=== PATIENT | male | born 1980 | race Two or more races ===

== ENCOUNTER 2024-09-02 20:27 | Emergency (ER) | payer BC, OTHER ==
[~2024-09-02] VITALS: Ht 167.6 cm; Wt 72.7 kg
[2024-09-02] MEDS: ONDANSETRON HCL 4 MG/2 ML VIAL IV ONE (21:30)
[2024-09-02] MEDS: THIAMINE 100mg/ml INJ (200mg/2ml VIAL) IV ONE (21:30)
[2024-09-02] MEDS: SODIUM CHLORIDE 0.9% 2,000 ML IV ONE (21:30)
--- NOTE | 2024-09-02 22:13 | ED.PDOC ---
History of Present Illness HPI Comments Patient is a 43-year-old male who arrives the ED today via EMS due to intoxication. Patient apparently was leaning on a taco truck intoxicated when the taco truck esthetician/owner called EMS. Patient arrives intoxicated. Patient states he is not interested in receiving any services. Chief Complaint: ETOH Time Seen by MD: 20:49 Reviewed Notes: Nurses Notes, Cut Roll Machine Offbearer Notes Allergies: Coded Allergies: NO KNOWN ALLERGIES (Unverified , 09/02/24) Information Source: Patient, Emergency Med Personnel Mode of Arrival: Ambulatory Severity: Moderate Timing: Hours Duration: Since onset Prehospital treatment: None Past Medical History PAST MEDICAL HISTORY: Denies Surgical History: Denies all surgeries Family History Family History: Reviewed,noncontributory to illness, No family hx of Cancer, No family hx of DM, No family hx of Heart solo, No family hx of HTN, No family hx ofKidney solo, No family hx of Liver solo, No family hx of Lung solo, No family hx of Stroke Social History Smoker: Non-Smoker Alcohol: Heavy Drugs: Denies Drug Use Lives In: Home Constitutional: denies: chills, diaphoresis, fatigue, fever, malaise, sweats, weakness, others EENTM: denies: blurred vision, double vision, ear bleeding, ear discharge, ear drainage, ear pain, ear ringing, eye pain, eye redness, hearing loss, mouth pain, mouth swelling, nasal discharge, nose bleeding, nose congestion, nose pain, photophobia, tearing, throat pain, throat swelling, voice changes, others Respiratory: denies: cough, hemoptysis, orthopnea, SOB at rest, shortness of breath, SOB with excertion, stridor, wheezing, others Cardiovascular: denies: chest pain, dizzy spells, diaphoresis, Dyspnea on exertion, edema, irregular heart beat, left arm pain, lightheadedness, pa lpitations, PND, syncope, others Gastrointestinal: denies: abdomen distended, abdominal pain, blood streaked bowels, constipated, diarrhea, dysphagia, difficulty swallowing, hematemesis, melena, nausea, poor appetite, poor fluid intake, rectal bleeding, rectal pain, vomiting, others Genitourinary: denies: burning, dysuria, flank pain, frequency, hematuria, incontinence, penile discharge, penile sore, pain, testicle pain, testicle swelling, urgency, others Neurological: denies: dizziness, fainting, headache, left sided numbness, left sided weakness, numbness, paresthesia, pre-existing deficit, right sided numbness, right sided weakness, seizure, speech problems, tingling, tremors, weakness, others Musculoskeletal: denies: back pain, gout, joint pain, joint swelling, muscle pain, muscle stiffness, neck pain, others Integumetry: denies: bruises, change in color, change in hair/nails, dryness, laceration, lesions, lumps, rash, wounds, others Allergic/Immunocompromised: denies: Difficulty Healing, Frequent Infections, Hives, Itching, others Hematologic/Lymphatic: denies: anemia, blood clots, easy bleeding, easy br uising, swollen glands, others Endocrine: denies: excessive hunger, excessive sweating, excessive thirst, excessive urination, flushing, intolerance to cold, intolerance to heat, unexplained weight gain, unexplained weight loss, others Psychiatric: denies: anxiety, bipolar disorder, depression, hopeless, panic disorder, schizophrenia, sleepless, suicidal, others Unable to Obtain due to: Other (Alcohol intoxication) Physical Exam General Appearance: Moderate Distress (Patient is intoxicated, but refuses any services.), Normal HEENT: Normal ENT Inspection, Pharynx Normal, TMs Normal Neck: Full Range of Motion, Non-Tender, Normal, Normal Inspection Respiratory: Chest Non-Tender, Lungs Clear, No Accessory Muscle Use, No Resp iratory Distress, Normal Breath Sounds Cardiovascular: No Edema, No JVD, No Murmur, No Gallop, Normal Peripheral Pulses, Regular Rate/Rhythm Breast Exam: Deferred Gastrointestinal: No Organomegaly, Non Tender, No Pulsatile Mass, Normal Bowel Sounds, Soft Genitalia: Deferred Pelvic: Deferred Rectal: Deferred Extremities: No calf tenderness, Normal capillary refill, Normal inspection, Normal range of motion, Non-tender, No pedal edema Neurologic: NOT DONE Cerebellar Function: NOT DONE Reflexes: NOT DONE Skin: Dry, Normal Color, Warm Lymphatic: No Adenopathy Was a procedure done? Was a procedure done?: No Differential Dx Considerations may include: Assault abuse, alcohol intoxication X-Ray, Labs, Meds, VS Vital Signs Date Time Temp Pulse Resp B/P (MAP) Pulse Ox O2 Delivery O2 Flow Rate FiO2 09/02/24 20:33 98.4 74 16 115/77 (90) 98 X-Ray, Labs, Meds, VS Comment Patient declined any services at our facility today. I advised the patient to contact someone to come pick him up. Once that individual is seen and evaluated by nursing, patient can leave the facility. Time of 1ST Reevaluation: 22:12 Reevaluation 1ST: Unchanged Consultation: PCP Patient Education/Counseling: Diagnosis, Treatment Family Education/Counseling: Diagnosis, Treatment Departure 1 Departure Time of Disposition: 22:13 Impression: Primary Impression: Alcohol abuse Additional Impression: Alcohol intoxication Disposition: HOME / SELF CARE / HOMELESS Condition: Stable Additional Instructions: Advised patient cease alcohol use immediately and follow up with a an alcohol rehabilitation groups such as [facility]. Advised good hydration and healthy nutrition over the next few weeks. Discharged With: Self, Friend Critical Care Note Critical Care Time?: No Stability Stability form required: No Heart Score Heart Score: Heart Score Response (Comments) Value History N/A 0 EKG N/A 0 Age N/A 0 Risk Factors N/A 0 Troponin N/A 0 Total 0 FORTUNATO BLACKBURN PAC Sep 02, 2024 22:13
--- NOTE | 2024-09-02 22:15 | ED.PDOC ---
History of Present Illness HPI Comments 43 y/o M, with a Hx of alcohol abuse, is BIBA for c/o ALOC s/p EtOH intoxication, today. Patient is a poor historian and confused and endorses only to heavy alcohol intake, earlier, this evening, and inquires for unspecific "assistance." He is noted to have a laceration to his left earlobe but is unable, along with any additional information regarding this evening's events prior to ED visit, recollect. Further Hx cannot be obtained, due to patient's current altered stated and absence of family/electromechanical equipment assembler historians, at time of assessment. Chief Complaint: ETOH Time Seen by MD: 21:25 Reviewed Notes: Nurses Notes, Ceramic Maker Demonstrator Notes, Medications, Allergies Allergies: Coded Allergies: NO KNOWN ALLERGIES (Unverified , 09/02/24) Information Source: Patient, Emergency Med Personnel Mode of Arrival: Ambulatory Severity: Moderate Timing: Hours Duration: Since onset Prehospital treatment: None Past Medical History PAST MEDICAL HISTORY: Denies Surgical History: Denies all surgeries Family History Family History: Unknown Social History Smoker: Non-Smoker Alcohol: Heavy Drugs: Denies Drug Use Lives In: Home Neurological: reports: others (ALOC s/p EtOH intoxication ) All Other Systems: Reviewed and Negative (negative unless otherwise stated above or in HPI) Physical Exam General Appearance: No Apparent Distress, Normal HEENT: Normal ENT Inspection, Pharynx Normal, TMs Normal Neck: Full Range of Motion, Non-Tender, Normal, Normal Inspection Respiratory: Chest Non-Tender, Lungs Clear, No Accessory Muscle Use, No Respiratory Distress, Normal Breath Sounds Cardiovascular: No Edema, No JVD, No Murmur, No Gallop, Normal Peripheral Pulses, Regular Rate/Rhythm Breast Exam: Deferred Gastrointestinal: No Organomegaly, Non Tender, No Pulsatile Mass, Normal Bowel Sounds, Soft Genitalia: Deferred Pelvic: Deferred Rectal: Deferred Extremities: No calf tenderness, Normal capillary refill, Normal inspection, Normal range of motion, Non-tender, No pedal edema Neurologic: Alert, remedial reading teacher II-XII nml as Tested, No Motor Deficits, Normal Affect, Normal Mood, No Sensory Deficits Cerebellar Function: Normal Reflexes: Normal Skin: Dry, Normal Color, Warm Lymphatic: No Adenopathy Was a procedure done? Was a procedure done?: No Differential Dx Considerations may include: EtOH intoxication, encephalopathy X-Ray, Labs, Meds, VS Vital Signs Date Time Temp Pulse Resp B/P (MAP) Pulse Ox O2 Delivery O2 Flow Rate FiO2 09/02/24 20:33 98.4 74 16 115/77 (90) 98 X-Ray, Labs, Meds, VS Comment This is a duplicate note. Please refer to the other note that was assembled on the same date for this patient. Time of 1ST Reevaluation: 21:55 Reevaluation 1ST: Unchanged Patient Education/Counseling: Diagnosis, Treatment Family Education/Counseling: No Family Present Departure 1 Departure Time of Disposition: 22:45 Impression: Primary Impression: Alcohol abuse Additional Impression: Alcohol intoxication Disposition: 01 HOME / SELF CARE / HOMELESS Condition: Fair Additional Instructions: Please disregard this note. Refer to note on same date for patient encounter. Discharged With: Self Critical Care Note Critical Care Time?: No Stability Stability form required: No Heart Score Heart Score: Heart Score Response (Comments) Value History N/A 0 EKG N/A 0 Age N/A 0 Risk Factors N/A 0 Troponin N/A 0 Total 0 I personally scribed for FORTUNATO BLACKBURN PAC ([email or web address]) on 09/02/24 at 22:15. Electronically submitted by Khanh Raza ([email or web address]). FORTUNATO BLACKBURN PAC Sep 02, 2024 22:15
[2024-09-02 22:47] VITALS: BP 115/77; TEMP 98.4
[2024-09-02 22:48] VITALS: PULSE 74; RESP 16; O2SAT 98
== END 2024-09-02 23:07 | disposition home or self-care (01) ==
LOC: ER 20:27 → EDBD 20:27 → ER 23:03
DX: F10.129 Alcohol abuse with intoxication, unspecified (principal)